=== PATIENT | female | born 1990 | race Caucasian/White ===

== ENCOUNTER 2018-07-11 21:09 | Emergency (ER) | payer OTHER, SELFPAY ==
[2018-07-11 21:17] VITALS: BP 119/84; PULSE 65; RESP 16; TEMP 36.5; O2SAT 95
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
[2018-07-11 21:45] VITALS: BP 119/84; PULSE 65; RESP 16; TEMP 36.5; O2SAT 95
== END 2018-07-11 21:39 | disposition home or self-care (01) ==
PROVIDERS: Emergency Provider Student in an Organized Health Care Education/Training Program
DX: M54.2 Cervicalgia (principal); V49.40XA Driver injured in collision with unspecified motor vehicles in traffic accident, initial encounter
CPT/HCPCS: 99282